=== PATIENT | male | born 1960 | race Caucasian/White ===

== ENCOUNTER 2018-03-28 00:03 | Emergency (ER) | payer SELFPAY ==
[~2018-03-28] VITALS: Ht 170.2 cm; Wt 81.8 kg
[2018-03-28] MEDS ORDERED: ETOMIDATE 2 MG/ML 10 ML VIAL IVP ONE (00:15)
[2018-03-28] MEDS ORDERED: OXYGEN THERAPY IH SCH (00:15)
[2018-03-28 02:25] VITALS: BP 135/83
== END 2018-03-28 02:25 | disposition home or self-care (01) ==
LOC: EMS 00:04
DX: S43.014A Anterior dislocation of right humerus, initial encounter (principal); F17.210 Nicotine dependence, cigarettes, uncomplicated; W01.0XXA Fall on same level from slipping, tripping and stumbling without subsequent striking against object, initial encounter; Y93.89 Activity, other specified; Y92.89 Other specified places as the place of occurrence of the external cause; Y99.8 Other external cause status
CPT/HCPCS: 23650; 73030; 96374; 99285; 99406; J3490; 99152